=== PATIENT | female | born 1960 | race Two or more races ===

== ENCOUNTER 2022-07-11 10:50 | Emergency (ER) | payer OTHER ==
[~2022-07-11] VITALS: Ht 157.5 cm; Wt 63.5 kg
[2022-07-11] MEDS ORDERED: PREMARIN0.45 MG PO (11:23)
[2022-07-11] MEDS ORDERED: SULFAZINE EC500 MG PO (11:24)
== END 2022-07-11 17:52 | disposition home or self-care (01) ==
LOC: ER 10:50
DX: K57.32 Diverticulitis of large intestine without perforation or abscess without bleeding (principal); R10.9 Unspecified abdominal pain

== ENCOUNTER 2024-08-28 10:37 | Outpatient (CLI) | payer OTHER ==
[~2024-08-28 10:37] MED LIST: PREMARIN0.45 MG PO; SULFAZINE EC500 MG PO
== END 2024-08-28 10:44 | disposition home or self-care (01) ==
LOC: MAMO-SONO 10:37
PROVIDERS: ATTEND Internal Medicine Cardiovascular Disease
DX: N60.29 Fibroadenosis of unspecified breast (principal)